=== PATIENT | male | born 1990 | race Caucasian/White ===

== ENCOUNTER 2020-07-15 03:45 | Emergency (ER) | payer OTHER ==
[~2020-07-15] VITALS: Ht 175.3 cm; Wt 99.8 kg
[2020-07-15 03:50] VITALS: BP 131/70
--- NOTE | 2020-07-15 03:50 | NUR ---
TO BED # 11 AMBULATORY
--- NOTE | 2020-07-15 04:00 | NUR ---
YOMI HA AT BEDSIDE FOR MEDICAL EVALUATION.
[2020-07-15] MEDS ORDERED: ASPIRIN 325 MG TAB PO ONE (04:10)
--- NOTE | 2020-07-15 04:20 | NUR ---
PATIENT PRESENTS TO ED WITH CHEST PAIN X1H . PT STATES THE PAIN STAYS IN HIS CHEST WITH NO RADIATING OR DEFERRED PAIN. DENIES N/V/D; SKIN IS PINK/WARM/DRY; AAOX4 WITH EVEN AND STEADY GAIT; LUNGS CLEAR BL; HR EVEN AND REGULAR; PT DENIES ANY FEVER, SOB, OR COUGH AT THIS TIME; PATIENT STATES PAIN OF 3/10 AT THIS TIME; VSS; PATIENT POSITIONED FOR COMFORT; HOB ELEVATED; BEDRAILS UP X2; BED DOWN. ER MD MADE AWARE OF PT STATUS.
--- NOTE | 2020-07-15 04:20 | NUR ---
18G IV INSERTED IN LEFT A/C , BLOOD LABS COLLECTED FROM IV SITE AND WALKED TO LAB.
--- NOTE | 2020-07-15 04:29 | NUR ---
RAD AT BEDSIDE
[2020-07-15 05:03] LABS: BASOPHILS % (AUTO) 0.4 % (0.0-2.0); EOSINOPHILS # (AUTO) 0.1 K/uL (0-0.4); EOSINOPHILS % (AUTO) 2.1 % (0.0-4.0); HEMATOCRIT 42.8 % (36-52); HEMOGLOBIN 14.9 g/dL (12.0-18.0); LYMPHOCYTES # (AUTO) 1.9 K/uL (2.0-11.5); LYMPHOCYTES % (AUTO) 32.9 % (20.5-51.1); MEAN CORPUSCULAR HEMOGLOBIN 30 pg (27-31); MEAN CORPUSCULAR HGB CONC 35 g/dL (33-37); MEAN CORPUSCULAR VOLUME 85.7 fL (80-94); MONOCYTES # (AUTO) 0.4 K/uL (0.8-1.0); MONOCYTES % (AUTO) 7.7 % (1.7-9.3); NEUTROPHILS # (AUTO) 3.3 K/uL (1.8-7.7); NEUTROPHILS % (AUTO) 56.9 % (42.2-75.2); PLATELET COUNT (AUTO) 171 K/uL (140-450); WHITE BLOOD COUNT (AUTO) 5.9 K/uL (4.8-10.8)
[2020-07-15 05:08] LABS: ANION GAP 11.6 (8-16); CARBON DIOXIDE 29.7 mmol/L (21-32); POTASSIUM 3.3 mmol/L (3.5-5.1)
--- NOTE | 2020-07-15 06:45 | NUR ---
REPEAT TROPONIN COLLECTED AND GIVEN TO [employer] REPAIRER.
--- NOTE | 2020-07-15 07:07 | NUR ---
REPORT GIVEN TO JEROME MATTHEWS, TRANSFER OF CARE.
--- NOTE | 2020-07-15 07:40 | NUR ---
RECEIVED REPORT FROM GAIL MATTHEWS RN.
--- NOTE | 2020-07-15 07:44 | NUR ---
Patient appears to be resting comfortably in bed. Vital Signs within normal limits. Respirations even and unlabored.DENIES CP AT THIS TIME.
[2020-07-15 08:19] VITALS: BP 104/60
--- NOTE | 2020-07-15 08:19 | NUR ---
Patient discharged with v/s stable. Written and verbal after care instructions given and explained. Patient verbalized understanding. Ambulatory with steady gait. All questions addressed prior to discharge. Advised to follow up with PMD.
--- NOTE | 2020-07-15 08:19 | NUR ---
IV removed, catheter intact and site benign. Applied folded 2x2 gauze and tape to stop bleeding.
== END 2020-07-15 08:19 | disposition home or self-care (01) ==
LOC: MED 03:45
DX: R07.9 Chest pain, unspecified (principal); M25.512 Pain in left shoulder
CPT/HCPCS: 36415; 71045; 80048; 84484; 85025; 93005; 99285